=== PATIENT | female | born 1990 | race Caucasian/White ===

== ENCOUNTER 2016-10-25 15:38 | Inpatient (IN) | payer BC ==
[2016-10-25] MEDS ORDERED: Ondansetron 4 MG/2 ML SDV IVPUSH PRN (19:49)
[2016-10-25] MEDS ORDERED: Nalbuphine 20 MG/1 ML Amp IVPUSH PRN (19:49)
[2016-10-25] MEDS ORDERED: Sodium Chloride 0.9% 10 ML Syringe FLUSH PRN (19:49)
[2016-10-25] MEDS ORDERED: Lidocaine 1% 50 ML MDV INJECT ONE (19:49)
[2016-10-25] MEDS: Oxytocin/Lactated Ringers 10 UNIT/1,000 ML BAG IV SCH (20:17)
[2016-10-25] MEDS: Lactated Ringers 1,000 ML IV SCH (20:18)
[2016-10-25] MEDS ORDERED: Diphtheria,Pertussis(Acell),Tetanus Vaccine 0.5 ML SDV IM ONE (21:45)
[2016-10-26] MEDS ORDERED: ePHEDrine 50 MG/ML SDV IVPUSH PRN (01:27)
[2016-10-26] MEDS ORDERED: diphenhydrAMINE 50 MG/ML SDV IVPUSH PRN (01:27)
[2016-10-26] MEDS ORDERED: fentaNYL 100 MCG/2 ML SDV EPIDUR PRN (01:27)
[2016-10-26] MEDS ORDERED: Ondansetron 4 MG/2 ML SDV IVPUSH PRN (01:27)
--- NOTE | 2016-10-26 01:27 | PCM.PREANE ---
Preanesthetic Assessment - Procedure Proposed Procedure: Labor epidural - Anesthesia/Transfusion/Family Hx Anesthesia History: Prior Anesthesia Without Reaction Family History of Anesthesia Reaction: No Transfusion History: No Prior Transfusion(s) - Review of Systems General: No Symptoms Pulmonary: No Symptoms Cardiovascular: No Symptoms Gastrointestinal: No Symptoms Neurological: No Symptoms Other: Reports: None - Physical Assessment NPO Status Date: 10/25/16 NPO Status Time: 23:30 Respiratory Rate: 18 Vital Signs: Last Vital Signs Temp 36.5 C 10/25/16 18:23 Pulse 78 10/25/16 18:23 Resp 18 10/25/16 18:23 BP 126/74 10/25/16 18:23 Pulse Ox Height: 1.73 m Weight: 98.883 kg ASA Class: 2 Mental Status: Alert & Oriented x3 Dentition: Reports: Normal Dentition Thyro-Mental Finger Breadths: 3 Mouth Opening Finger Breadths: 3 ROM/Head Extension: Full Lungs: Clear to Auscultation, Normal Respiratory Effort - Lab Values: Laboratory Last Values Blood Type O POSITIVE 10/25/16 20:10 Gel Antibody Screen Negative 10/25/16 20:10 - Allergies Allergies/Adverse Reactions: Allergies Allergy/AdvReac Type Severity Reaction Status Date / Time No Known Allergies Allergy Verified 10/26/14 13:07 - Blood Blood Available: No Product(s) Available: None - Anesthesia Plan Pre-Op Medication Ordered: None - Acknowledgements Anesthesia Type Planned: Epidural Pt an Appropriate Candidate for the Planned Anesthesia: Yes Alternatives and Risks of Anesthesia Discussed w Pt/Guardian: Yes Pt/Guardian Understands and Agrees with Anesthesia Plan: Yes PreAnesthesia Questionnaire 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: - Infectious Disease History Infectious Disease History: Reports: Chicken Pox - Past Surgical History HEENT Surgical History: Reports: Oral Surgery Other HEENT Surgeries/Procedures: [place] Teeth Removed 2009 Female Surgical History: Reports: Breast Implant, Section - SUBSTANCE USE Smoking Status *Q: Never Smoker Tobacco Use Within Last Twelve Months: No Second Hand Smoke Exposure: No Recreational Drug Use History: No - HOME MEDS Home Medications: Home Meds Prenat Vit Comb.10/Iron/Fa/Dha [Vitafol-OB + DHA] 1 each PO DAILY 10/25/16 [ History] - CURRENT (IN HOUSE) MEDS Current Meds: Current Medications Lactated Ringer's (Ringers, Lactated) 1,000 mls @ 100 mls/hr IV ASDIRECTED SANDRA Last Admin: 10/25/16 20:18 Dose: 100 mls/hr Oxytocin/Lactated Ringer's (Pitocin In Lr 10 Units/1,000 Ml) 10 unit in 1,000 mls @ 12 mls/hr IV TITRATE SANDRA; 2 MUNITS/MIN PRN Reason: Protocol Last Titration: 10/26/16 00:33 Dose: 8 munits/min, 48 mls/hr Nalbuphine HCl (Nubain) 10 mg IVPUSH Q2H PRN PRN Reason: Pain (moderate 4-6) Ondansetron HCl (Zofran) 4 mg IVPUSH Q4H PRN PRN Reason: Nausea/Vomiting Sodium Chloride (Saline Flush) 10 ml FLUSH ASDIRECTED PRN PRN Reason: Keep Vein Open Discontinued Medications Diphtheria/Tetanus/Acell Pertussis (Adacel) 0.5 ml IM .ONCE ONE Stop: 10/25/16 21:46 Lidocaine HCl (Xylocaine 1%) 10 ml INJECT ONETIME ONE Stop: 10/25/16 19:50
[2016-10-26] MEDS: Lactated Ringers 1,000 ML IV SCH ×4 (04:08→11:23)
[2016-10-26] MEDS: Bupivacaine/fentaNYL/NS 100 ML Bag EPIDUR SCH ×2 (04:39→12:44)
--- NOTE | 2016-10-26 07:43 | HP ---
DATE OF ADMISSION: 10/25/2016 ADMISSION DIAGNOSIS: 39 and 1/7th week intrauterine , elevated blood pressures. HISTORY OF PRESENT ILLNESS: The patient is a 26-year-old, 2, para 1-0-0-1 white female, who was seen at [facility] in [place] today and was noted to have elevated blood pressures x4. She is at 39 weeks and 1 day with an ANG of 10/31/2016. Her blood pressures in clinic today were 175/78, 168/75, 170/82, and 156/98. The patient was having no other symptoms associated with the blood pressure, was having occasional contractions. She denies specifically any headaches, vision changes, spots in her eyes, blurry vision, or double vision. No right upper quadrant pain. She does report good activity. Reflexes were found to be brisk in lower extremities +3/4 and upper extremities are within normal limits. 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 Certain last menstrual period started on 01/25/2016 and lasted for approximately 5-7 days. Cycle comes q.30 days' duration approximately 1 week. Menarche age 12. Not using any control at time of conception. The patient had an ANG set by her LMP at 10/31/2016. This was supported by 2 ultrasounds with 1st one being done on 04/27/2016 second one being done on 06/15/2016. Her course was relatively unremarkable. She declined genetic evaluation. [place] depression screen score on 06/07/2016 was 14 and on repeat 06/28/2016 it was 4. She is group B strep negative. She has history of previous section for breech. There is a trial of labor for attempt. 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 Her course started at approximately 12 weeks' gestation. She was seen on a regular basis. Her weight increased from 185-218 for a 33-pound weight gain. Her fundal height was appropriate with fundal height today at 40 cm. Her vital signs were normal until just this visit. Her last visit 10/09/2016, it was 108/62. She has no history of preeclampsia. LABORATORY DATA: laboratory testing consists of blood O positive. Antibody screen is negative. First ivett hemoglobin was 14.1 g/dL and platelets were 232,000. She is rubella immune. Hepatitis B surface antigen assay was negative. Chlamydia and gonorrhea assays were negative. Her second trimester testing showed a hemoglobin of 12.7 and platelets 202,000. Her 1-hour GTT was 86. Her group B strep screen was negative. CURRENT MEDICATIONS: vitamins 1 daily. ALLERGIES: No known drug allergies. PAST MEDICAL HISTORY: Essentially unremarkable. PAST SURGICAL HISTORY: Breast augmentation surgery 2011, surgery of oral cavity 2008, 2014 for breech presentation. This was a low uterine transverse section. FAMILY HISTORY: Positive for mom who is alive and well. Is hypothyroid and has hypertension. Mother has a history of benign brain tumor, has some one-sided neurological deficits associated, this was functioning relatively normal at this time. Father has history of hypertension and hypercholesterolemia. One sister alive and well. Two brothers, 1 with hypertension. No anesthesia, bleeding, or blood clotting problems noted in the family. No related problems otherwise noted also. SOCIAL HISTORY: The patient is , is [place]. 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 She lives in [place] with her . She is a college graduate. She does not use any significant amounts of alcohol, drugs, or tobacco. REVIEW OF SYSTEMS: GENERAL: The patient has no concerns, specifically no concerns related to high blood pressure in . SKIN: No lesions. She has some acne scarring on her face, but no active acne at this time. CARDIOVASCULAR: No exercise intolerance or chest pain. RESPIRATORY: No shortness of breath or infectious symptoms. BREASTS: Changes associated with only. 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 GI: Negative. : Increased fundal height and other changes associated with . MUSCULOSKELETAL: Negative. NEUROLOGIC: Negative. PHYSICAL EXAMINATION: VITAL SIGNS: On evaluation in clinic, today blood pressures were elevated as described above. Her heart rate was 158, her weight was 215, up 33 pounds since 1st visit. At her first visit, her weight was 185, body mass index was 27.2. Blood pressure then was 122/78 and her height was 5 feet 8 inches. GENERAL: The patient is well-developed, well-nourished, pleasant female, stated age, in no acute distress. SKIN: Warm, dry, without lesions. HEENT, NECK, AND BACK: Within normal limits. LUNGS: Clear with good breath sounds in all lung murdock. CARDIOVASCULAR: Shows regular rate and rhythm without murmurs. BREASTS: Deferred. It was done at first visit and found to be normal. The patient is status post breast augmentation surgery. ABDOMEN: Shows fundal height of 40 cm, baby in a vertex presentation. Normal size for dates. : Cervix is 1-2 cm, 90% effaced, soft, mid position to mildly posterior position, -2 to -3 station, cephalic presentation confirmed. No evidence of rupture of membranes. EXTREMITIES: Show no significant edema. NEUROLOGIC: Shows 2+/4 deep tendon reflexes in upper extremities and 3+ deep tendon reflexes in lower extremities. No clonus is noted. RADIOGRAPHIC STUDIES: Laboratory testing consisted of a CBC, which shows a hemoglobin of 13.9, hematocrit of 40.2, white blood count is 9.3, and platelets 177. Her preeclampsia labs show PT of 9.3-normal. INR is 0.9-normal. Her comprehensive metabolic profile shows sodium and potassium of 138 and 3.9 respectively, chloride is 103, and CO2 is 25. Her BUN is 9 and creatinine is 0.7. AST is normal at 20 and ALT is normal at 24. Her random blood glucose was 84. Her uric acid was 3.0 mg/dL. ASSESSMENT: 1. Intrauterine at 39 and 1/7th weeks gestational age with blood pressure elevation in clinic now, it appears to be normalized somewhat. The patient is crescencio minimally. The patient would like to be back. 2. History of previous section for breech presentation. The patient has lower uterine transverse scar, therefore is a candidate for vaginal after section after a trial of labor after . The risks, benefits, and the judicious use of Pitocin are all discussed in detail with the patient. She appears to understand and wishes to proceed. Consent is signed for trial of labor and vaginal after attempt along with possible section. PLAN: 1. Trial of labor to attempt vaginal after section. Procedure, risks, benefits, possible complications, benefits of long-term were all discussed with the patient. She appears to understand, also is aware of possibility of failure with need for repeat section. She is willing to accept this risk and has signed a consent. 2. We will do preoperative laboratory testing. 3. Consent signed for TOLAC with and repeat section. 4. We will keep her diet very light. 5. Continuous monitoring. 6. Epidural if need be for pain control. 7. The patient was advised as to symptomatology of preeclampsia including headache, abdominal pain, etc. She will call if any of that happens. RUPA /[id number]
[2016-10-26] MEDS ORDERED: Sodium Chloride 0.9% 1,000 ML ONE (10:48)
[2016-10-26] MEDS: Oxytocin/Lactated Ringers 10 UNIT/1,000 ML BAG IV SCH ×2 (14:16→15:58)
[2016-10-26] MEDS ORDERED: Ibuprofen 600 MG Tab PO PRN (15:23)
[2016-10-26] MEDS ORDERED: Witch Hazel Medicated Pads 100/Jar TOP PRN ×2 (16:02→18:31)
[2016-10-26] MEDS ORDERED: Benzocaine/Menthol 20%-0.5% Spray 56 GM Canister TOP PRN ×2 (16:02→18:31)
--- NOTE | 2016-10-26 16:56 | PCM.SN ---
- Free Text/Narrative Note: Delivery note: Tabby is a 26-year-old 2 now para 2002 white female who is seen in clinic yesterday afternoon 10/25/2016 at which time she is noted to have elevated blood pressures 4. She is admitted into labor and delivery for further evaluation and consideration of possible induction of labor. Pressures normalized after being in the obstetrics department. Her preeclampsia labs were entirely normal. She is normal reflexes and no symptoms of preeclampsia. Decision was made however to proceed with induction of labor as patient was crescencio somewhat already. During the course of the time from her clinic visit to evaluation in the hospital her cervix to change subtly from 1-2 cm and was very thin. She lives approximately 1-1/2 hours from the hospital. She has a history of previous section which is done for breech presentation and desired trial of labor after section for a vaginal after attempt. Patient was augmented with Pitocin with very slow advancement of the Pitocin because of her history of section. Precautions were taken such as obtaining labs, obtaining a consent for both the and the section if that was to be necessary. Patient was monitored near continuously and anesthesia and surgery departments were notified of the candidate in house. She progressed well and on the a.m. of 10/26/2016 she was 3 cm , 100% effaced, -2 station, bulging bag mcpherson and very soft. Artificial rupture membranes was undertaken. She then proceeded to make rapid progress. She got to about 5-6 cm's at which time the patient was noted to have moderate variable decelerations. Amnioinfusion was then performed using normal saline with a bolus of fluids into the endometrial cavity followed by a maintenance dose of 100 mL per hour. With this the variable decelerations improved but did not resolve completely. She made it to complete cervical dilation by approximately 1345 hrs. She pushed approximately 3 contractions and delivered a baby. Baby delivered in a left occiput anterior position. Nose and mouth are bulb suctioned. Cortisporin be loosely around the neck 1 and around the shoulder 1. It was reduced over the baby's head. Baby weighed thousand 270 g (7 pounds 3.3 ounces), had Apgars of 8 and 9, a length of 21.5 inches. The baby was placed on mom's abdomen. Cord was clamped 2 and cut by the baby's father. The patient was administered Pitocin IV to facilitate increase in uterine tone and decrease potential bleeding. The placenta delivered in [place] presentation at 1403 hrs. It appeared intact, had a three-vessel cord and appeared complete. It should be noted patient had an epidural placed for analgesia. As her blood loss was 100 mL. Laceration which was first-degree in nature was repaired with a short running suture of 3- 0 Monocryl. Patient nursed after delivery. Condition: Good
[2016-10-26] MEDS ORDERED: Lanolin 100% Cream 7 GM Tube TOP PRN (18:31)
[2016-10-26] MEDS ORDERED: Acetaminophen 325 MG Tab PO PRN (18:31)
[2016-10-26] MEDS ORDERED: Bupivacaine 0.25% 10 ML SDV ONE (22:22)
[2016-10-27] MEDS: Ibuprofen 600 MG Tab PO PRN ×4 (00:42→16:11)
[2016-10-27] MEDS: Docusate Sodium 100 MG Cap PO PRN ×2 (00:45→11:43)
--- NOTE | 2016-10-27 06:26 | PCM.SN ---
- Free Text/Narrative Note: The patient is day 1. Doing well. Minimal lochia. Nursing without problems. Signs stable, patient is afebrile. Abdomen is flat, soft, nontender. Uterus is just below the umbilicus and soft. Legs are nontender. Assessment/plan: Was for an day 1. Normal recovery. Routine cares. Possibly home tomorrow.
--- NOTE | 2016-10-27 08:51 | PCM48HPAN ---
Post Anesthesia Note - EVALUATION WITHIN 48HRS OF ANESTHETIC Vital Signs in Normal Range: Yes Patient Participated in Evaluation: Yes Respiratory Function Stable: Yes Airway Patent: Yes Cardiovascular Function Stable: Yes Hydration Status Stable: Yes Pain Control Satisfactory: Yes Nausea and Vomiting Control Satisfactory: Yes Mental Status Recovered: Yes
--- NOTE | 2016-10-28 08:16 | PCM.DCSUM1 ---
Discharge Summary - Discharge Data Discharge Date: 10/28/16 Discharge Disposition: Home, Self-Care 01 Condition: Good - Patient Summary/Data Hospital Course: Delivery note: Tabby is a 26-year-old 2 now para 2002 white female who is seen in clinic yesterday afternoon 10/25/2016 at which time she is noted to have elevated blood pressures 4. She is admitted into labor and delivery for further evaluation and consideration of possible induction of labor. Pressures normalized after being in the obstetrics department. Her preeclampsia labs were entirely normal. She is normal reflexes and no symptoms of preeclampsia. Decision was made however to proceed with induction of labor as patient was crescencio somewhat already. During the course of the time from her clinic visit to evaluation in the hospital her cervix to change subtly from 1-2 cm and was very thin. She lives approximately 1-1/2 hours from the hospital. She has a history of previous section which is done for breech presentation and desired trial of labor after section for a vaginal after attempt. Patient was augmented with Pitocin with very slow advancement of the Pitocin because of her history of section. Precautions were taken such as obtaining labs, obtaining a consent for both the and the section if that was to be necessary. Patient was monitored near continuously and anesthesia and surgery departments were notified of the candidate in house. She progressed well and on the a.m. of 10/26/2016 she was 3 cm , 100% effaced, -2 station, bulging bag mcpherson and very soft. Artificial rupture membranes was undertaken. She then proceeded to make rapid progress. She got to about 5-6 cm's at which time the patient was noted to have moderate variable decelerations. Amnioinfusion was then performed using normal saline with a bolus of fluids into the endometrial cavity followed by a maintenance dose of 100 mL per hour. With this the variable decelerations improved but did not resolve completely. She made it to complete cervical dilation by approximately 1345 hrs. She pushed approximately 3 contractions and delivered a baby. Baby delivered in a left occiput anterior position. Nose and mouth are bulb suctioned. Cortisporin be loosely around the neck 1 and around the shoulder 1. It was reduced over the baby's head. Baby weighed thousand 270 g (7 pounds 3.3 ounces), had Apgars of 8 and 9, a length of 21.5 inches. The baby was placed on mom's abdomen. Cord was clamped 2 and cut by the baby's father. The patient was administered Pitocin IV to facilitate increase in uterine tone and decrease potential bleeding. The placenta delivered in [place] presentation at 1403 hrs. It appeared intact, had a three-vessel cord and appeared complete. It should be noted patient had an epidural placed for analgesia. As her blood loss was 100 mL. Laceration which was first-degree in nature was repaired with a short running suture of 3- 0 Monocryl. Patient nursed after delivery. Condition: Good Uncomplicated course. - Patient Instructions Diet: Usual Diet as Tolerated Activity: No Strenuous Activities Activity, Other: pelvic rest Driving: May Drive Today Showering/Bathing: June Shower Notify Provider of: Fever, Increased Pain, Swelling and Redness, Drainage, Nausea and/or Vomiting - Discharge Plan Home Medications: Home Meds Prenat Vit Comb.10/Iron/Fa/Dha [Vitafol-OB + DHA] 1 each PO DAILY 10/25/16 [ History] - Discharge Summary/Plan Comment DC Time >30 min.: No - General Info Date of Service: 10/28/16 Functional Status: Reports: Pain Controlled - Review of Systems General: Reports: No Symptoms HEENT: Reports: No Symptoms Pulmonary: Reports: No Symptoms Cardiovascular: Reports: No Symptoms Gastrointestinal: Reports: No Symptoms Genitourinary: Reports: No Symptoms Musculoskeletal: Reports: No Symptoms Skin: Reports: No Symptoms Neurological: Reports: No Symptoms Psychiatric: Reports: No Symptoms - Patient Data Vitals - Most Recent: Last Vital Signs Temp 36.7 C 10/27/16 19:55 Pulse 73 10/27/16 19:55 Resp 16 10/27/16 19:55 BP 139/84 10/27/16 19:55 Pulse Ox 99 10/27/16 19:55 Weight - Most Recent: 98.883 kg I&O - Last 24 hours: Intake & Output 10/27/16 10/28/16 10/28/16 22:59 06:59 14:59 Intake Total 180 Balance 180 Med Orders - Current: Current Medications Acetaminophen (Tylenol) 650 mg PO Q4H PRN PRN Reason: mild pain or fever Benzocaine/Menthol (Dermoplast Pain Relief [place]) 0 gm TOP ASDIRECTED PRN PRN Reason: Perineal Comfort Measure Docusate Sodium (Colace) 100 mg PO BID PRN PRN Reason: Constipation Last Admin: 10/27/16 11:43 Dose: 100 mg Emollient Ointment (Lansinoh Hpa) 0 gm TOP ASDIRECTED PRN PRN Reason: Sore Nipples Last Admin: 10/26/16 20:56 Dose: 1 applic Ibuprofen (Motrin) 600 mg PO Q4H PRN PRN Reason: Mild pain or fever Last Admin: 10/27/16 16:11 Dose: 600 mg Witch Janet (Tucks) 1 pad TOP ASDIRECTED PRN PRN Reason: Hemorrhoid pain Discontinued Medications Benzocaine/Menthol (Dermoplast Pain Relief [place]) 56 gm TOP ASDIRECTED PRN PRN Reason: perineal discomfort Last Admin: 10/26/16 16:43 Dose: 1 can Diphenhydramine HCl (Benadryl) 25 mg IVPUSH Q6H PRN PRN Reason: Pruritis Diphtheria/Tetanus/Acell Pertussis (Adacel) 0.5 ml IM .ONCE ONE Stop: 10/25/16 21:46 Last Admin: 10/27/16 09:57 Dose: 0.5 ml Ephedrine Sulfate (Ephedrine Sulfate) 5 mg IVPUSH ASDIRECTED PRN PRN Reason: Hypotension Fentanyl (Sublimaze) 100 mcg EPIDUR Q3H PRN PRN Reason: Pain Last Admin: 10/26/16 04:38 Dose: 100 mcg Fentanyl/Bupivacaine HCl (Fentanyl/Bupivacaine/Ns 2 Mcg-0.125% 100 Ml) 100 ml EPIDUR ASDIRECTED SANDRA Last Admin: 10/26/16 12:44 Dose: 100 ml Lactated Ringer's (Ringers, Lactated) 1,000 mls @ 100 mls/hr IV ASDIRECTED SANDRA Last Admin: 10/26/16 11:23 Dose: 100 mls/hr Oxytocin/Lactated Ringer's (Pitocin In Lr 10 Units/1,000 Ml) 10 unit in 1,000 mls @ 12 mls/hr IV TITRATE SANDRA; 2 MUNITS/MIN PRN Reason: Protocol Last Admin: 10/26/16 15:58 Dose: 999 mls/hr Sodium Chloride (Normal Saline) Confirm Administered Dose 1,000 mls @ as directed .ROUTE .STK-MED ONE Stop: 10/26/16 10:49 Last Admin: 10/26/16 19:22 Dose: Not Given Ibuprofen (Motrin) 600 mg PO Q4H PRN PRN Reason: Pain Last Admin: 10/26/16 16:42 Dose: 600 mg Lidocaine HCl (Xylocaine 1%) 10 ml INJECT ONETIME ONE Stop: 10/25/16 19:50 Last Admin: 10/26/16 19:21 Dose: Not Given Nalbuphine HCl (Nubain) 10 mg IVPUSH Q2H PRN PRN Reason: Pain (moderate 4-6) Ondansetron HCl (Zofran) 4 mg IVPUSH Q4H PRN PRN Reason: Nausea/Vomiting Ondansetron HCl (Zofran) 4 mg IVPUSH ONETIME PRN PRN Reason: Nausea/Vomiting Sodium Chloride (Saline Flush) 10 ml FLUSH ASDIRECTED PRN PRN Reason: Keep Vein Open Witch Janet (Tucks) 1 pad TOP ASDIRECTED PRN PRN Reason: perineal discomfort Last Admin: 10/26/16 16:43 Dose: 1 container - Exam General: Reports: Alert, Oriented HEENT: Reports: Pupils Equal, Pupils Reactive, EOMI, Mucous Membr. Moist/[place] Neck: Reports: Supple Lungs: Reports: Clear to Auscultation, Normal Respiratory Effort Cardiovascular: Reports: Regular Rate, Regular Rhythm GI/Abdominal Exam: Normal Bowel Sounds, Soft, Non-Tender, No Organomegaly, No Distention, No Abnormal Bruit, No Mass, Pelvis Stable (Female) Exam: Normal External Exam, Normal Speculum Exam, Normal Bimanual Exam Back Exam: Reports: Normal Inspection, Full Range of Motion Extremities: Normal Inspection, Normal Range of Motion, Non-Tender, No Pedal Edema, Normal Capillary Refill Skin: Reports: Warm, Dry, Intact Wound/Incisions: Reports: Healing Well Neurological: Reports: No New Focal Deficit Psy/Mental Status: Reports: Alert, Normal Affect, Normal Mood *Q Meaningful Use (DIS) - VTE *Q VTE Criteria *Q: - Stroke *Q Stroke Criteria *Q: - AMI *Q AMI Criteria *Q:
[2016-10-28] MEDS: Ibuprofen 600 MG Tab PO PRN ×2 (08:32→12:22)
[2016-10-28] MEDS: Docusate Sodium 100 MG Cap PO PRN (08:35)
[2016-10-28 09:07] VITALS: BP 122/71
== END 2016-10-28 16:09 | disposition home or self-care (01) | DRG 560 ==
LOC: JD.WOMH 15:38 → JD.OB 18:09 → OBSVTOIN 10-26 13:54 → JD.OB 10-26 13:54
PROVIDERS: ADMIT Obstetrics & Gynecology; ATTEND Obstetrics & Gynecology
PROC: 10E0XZZ Delivery of Products of Conception, External Approach (ICD-10-PCS; principal; 2016-10-26)
PROC: 10907ZC Drainage of Amniotic Fluid, Therapeutic from Products of Conception, Via Natural or Artificial Opening (ICD-10-PCS; 2016-10-26)
PROC: 3E0E7GC Introduction of Other Therapeutic Substance into Products of Conception, Via Natural or Artificial Opening (ICD-10-PCS; 2016-10-26)
PROC: 0HQ9XZZ Repair Perineum Skin, External Approach (ICD-10-PCS; 2016-10-26)
PROC: 00HU33Z Insertion of Infusion Device into Spinal Canal, Percutaneous Approach (ICD-10-PCS; 2016-10-26)
PROC: 3E0R3CZ (ICD-10-PCS; 2016-10-26)
DX: O16.4 Unspecified maternal hypertension, complicating childbirth (principal); O34.211 Maternal care for low transverse scar from previous cesarean delivery; N85.8 Other specified noninflammatory disorders of uterus; O76 Abnormality in fetal heart rate and rhythm complicating labor and delivery; Z3A.39 39 weeks gestation of pregnancy; Z37.0 Single live birth; O69.81X0 Labor and delivery complicated by cord around neck, without compression, not applicable or unspecified; O70.0 First degree perineal laceration during delivery
CPT/HCPCS: 36415; 85027; 86850; 86900; 86901; 90715; A9270-GY; J2590; J3010; J7120